=== PATIENT | male | born 1995 | race Caucasian/White ===

== ENCOUNTER 2020-09-28 17:46 | Emergency (ER) | payer SELFPAY ==
[2020-09-28 17:50] VITALS: BP 115/61; PULSE 109; RESP 18; TEMP 36.4; O2SAT 97; BMI 19.0
[2020-09-28 20:45] VITALS: PULSE 79; RESP 16; O2SAT 99
--- NOTE | 2020-09-28 23:39 | ED_ITS ---
HPI - Extremity Problem General Chief complaint: Extremity Problem,Nontraumatic Stated complaint: Swelling Feet and Red Legs Time Seen by Provider: 09/28/20 18:04 Source: patient Mode of arrival: Ambulatory Limitations: no limitations History of Present Illness HPI Narrative: 25M non smoker without medical problems presents with his mother and the chief complaint of B/L foot swelling this evening. He denies any pain or injury. He denies CP, SOB, fever, or chills. He Has no weakness, dizziness, or lightheadedness. He reports that he had been playing video games all night and noticed the swelling, which seemed to go away with elevation. He took a very hot shower tonight and states they swelled again at that point. He is otherwise free of complaint.ginger CONCEPCION Complaint: extremity swelling Onset (ago): hour(s) Pain Consistency: intermittent Location: left, right and lower extremity Radiation: none Relieving factors: nothing Exacerbating factors: nothing Associated symptoms: denies other symptoms Related Data Allergies Allergy/AdvReac Type Severity Reaction Status Date / Time codeine Allergy Anaphylaxis Verified 09/28/20 17:56 Review of Systems Constitutional Constitutional: Denies chills, Denies fatigue, Denies fever(s), Denies frequent falls, Denies lethargy and Denies weakness Eyes Eyes: Denies change in vision, Denies eye discharge, Denies irritation and Denies loss of vision ENT Ears, Nose, Mouth, and Throat: Denies change in voice, Denies dizziness, Denies neck pain, Denies sore throat and Denies throat swelling Cardiovascular Cardiovascular: Denies chest pain, Denies irregular heart rhythm, Reports leg edema, Denies lightheadedness, Denies palpitations, Denies dyspnea, Denies dyspnea on exertion and Denies orthopnea Respiratory Respiratory: Denies cough, Denies dyspnea, Denies dyspnea on exertion and Denies wheezing Gastrointestinal Gastrointestinal: Denies abdominal pain, Denies change in bowel habits, Denies diarrhea, Denies nausea and Denies vomiting Musculoskeletal Musculoskeletal: Denies neck pain and Denies numbness Integumentary/Breasts Skin/Breast: Denies pruritus, Denies erythema, Denies rash and Denies wounds Neurologic Neurologic: Denies behavioral changes, Denies confusion, Denies dizziness, Denies frequent falls, Denies loss of vision, Denies numbness and Denies weakness Psychiatric Psychiatric: Denies anxiety, Denies behavioral changes, Denies confusion, Denies depression, Denies homicidal ideation and Denies suicidal ideation Endocrine Endocrine: Denies fatigue, Denies flushing and Denies palpitations Hematologic/Lymphatic Hematologic/Lymphatic: Denies easy bruising Allergic/Immunologic Allergic/Immunologic: Denies urticaria, Denies throat swelling and Denies wheezing Patient History Social History Smoking Status: Current every day smoker Smoking Status: Current every day smoker alcohol intake frequency: 0-2 drinks per day Substance Use Type: marijuana Exam Narrative Exam Narrative: GEN: AOx3 and in mild distress EYES: Pupils are equal, round, and reactive to light and accommodation. Extraoccular muscles are intact bilaterally. There is no subconjunctival hemorrhage or exudate. CHEST: Lungs are clear to auscultation bilaterally and free of wheezes, rales, or rhonchi. Heart rate is regular rhythm, there are no murmurs, clicks, rubs, or gallops. There is no chest wall tenderness. ABD: Abdomen is soft and nontender. There is no guarding or rebound. Bowel sounds are normal in all 4 quadrants. There is no mass or organomegaly. EXT: Full painless ROM of all extremities with no loss of sensation or strength. 1+ pitting edema bilateral feet. Cap refill less than 2 seconds. No pain or swelling with palpation of calves or medial thighs. There is minimal erythema bilaterally on the anterior shins that stops abruptly, with very well-demarcated line where his socks stopped SKIN: Otherwise Warm, pink, and dry. No erythema or rash Initial Vital Signs Initial Vital Signs: Vital Signs Temperature 97.5 F L 09/28/20 17:50 Pulse Rate 109 H 09/28/20 17:50 Respiratory Rate 18 09/28/20 17:50 Blood Pressure 115/61 09/28/20 17:50 Pulse Oximetry 97 09/28/20 17:50 Course Vital Signs Vital signs: Vital Signs - 8 hr 09/28/20 17:50 09/28/20 20:45 Temperature 97.5 F L Pulse Rate 109 H 79 Respiratory Rate 18 16 Blood Pressure 115/61 Pulse Oximetry 97 99 MDM - Extremity (Nontraumatic) MDM Narrative Medical decision making narrative: Extensive discussion with patient and mother at bedside. Patient is completely asymptomatic except edema in both feet. No pain, redness, warmth, CP, SOB. Diagnoses considered include infection (unlikely given lack of pain, fever, and bilateral distribution), clot considered (unlikely given lack of pain and bilateral distribution), systemic problems such as renal or heart failure considered, but thought unlikely given lack of other symptoms. Discussion regarding the high likelihood of this being dependent edema and low likely yield of labs. Patient understands this and would prefer to keep it simple for today given lack of other symptoms. Return precautions given and questions answered to his apparent satisfaction. Discharge Plan Departure Patient Disposition: Home Clinical Impression: Lower extremity edema Instructions: DI for Dependent Edema Activity Restrictions/Additional Instructions: *You have been diagnosed with [lower extremity edema. Your exam and story are very reassuring. Other diagnoses such as heart or kidney troubles as well as infection and clot are considered, but thought less likely given your story and exam ] *What to do: *Elevate your legs above the level of your heart multiple times daily for the next few days *Follow up with your primary care provider in 2-3 days, call for an phyllis ointment. Let them know you were seen in the Emergency Department and that we ask that you be seen in follow up *Return to ER if you should have any new, worsening or concerning symptoms, such as [chest pain, shortness of breath, fever >101F, shaking chills, pain or other bothersome symptoms ]
== END 2020-09-28 20:48 | disposition home or self-care (01) ==
PROVIDERS: Emergency Provider Emergency Medicine
DX: R60.0 Localized edema (principal)
CPT/HCPCS: 99281